=== PATIENT | female | born 1995 | race Two or more races ===

== ENCOUNTER 2018-06-28 19:05 | Inpatient (IN) | payer BC ==
[2018-06-28 20:38] VITALS: BMI 31.4
[2018-06-28] MEDS ORDERED: Lactated Ringer's 1,000 ML IV ONE ×2 (20:41→21:15)
[2018-06-28 22:17] LABS: BASO % 0.2 % (0.0-2.0); EOS # 0.1 K/uL (0.0-0.7); EOS % 0.6 % (0.0-4.0); HEMOGLOBIN 10.9 g/dL (11.0-16.0); LYMPH # 2.6 K/uL (1.0-4.3); LYMPH % 20.4 % (20.0-40.0); MEAN CELL VOLUME 80.5 fL (81.0-99.0); MEAN CORPUSCULAR HEMOGLOBIN 27.4 pg (27.0-31.0); MEAN PLATELET VOLUME 8.8 fL (7.2-11.7); MONO # 0.9 K/uL (0.0-0.8); MONO % 7.1 % (0.0-10.0); NEUT # 9.1 K/uL (1.8-7.0); NEUT % 71.7 % (50.0-75.0); NRBC % 0.1 % (0.0-2.0); RED CELL DISTRIBUTION WIDTH 14.9 % (11.5-14.5); WHITE BLOOD COUNT 12.7 K/uL (4.8-10.8)
[2018-06-28 22:28] LABS: SQUAMOUS EPITHIAL < 1 /hpf (0-5); URINE BACTERIA RARE (<OCC); URINE BILIRUBIN NEGATIVE (NEGATIVE); URINE BLOOD 1+ (NEGATIVE); URINE CLARITY Hazy (Clear); URINE COLOR Yellow (YELLOW); URINE GLUCOSE (UA) NORMAL (Normal); URINE LEUKOCYTE ESTERASE 3+ Leu/uL (Negative); URINE PROTEIN NEGATIVE (NEGATIVE); URINE UROBILINOGEN NORMAL mg/dL (0.2-1.0)
[2018-06-29] MEDS ORDERED: Bupivacaine HCl/FentaNYL Cit 100 ML EPI ONE (01:28)
[2018-06-29] MEDS ORDERED: Lidocaine 2% MPF (5 ml) Inj ONE ×2 (07:20→09:00)
[2018-06-29] MEDS ORDERED: Oxycodone/Acetaminophen 5/325 mg Tab PO PRN (09:30)
[2018-06-29] MEDS ORDERED: Oxytocin 30 UNIT 30 UNITS/500 ML BAG IV ONE (09:30)
[2018-06-29] MEDS: Benzocaine/Menthol 20%-0.5% Topical Spray (60 ml) TOP PRN ×2 (11:36→17:46)
[2018-06-29 21:05] LABS: BASO % 0.2 % (0.0-2.0); EOS % 0.1 % (0.0-4.0); HEMOGLOBIN 9.7 g/dL (11.0-16.0); LYMPH % 6.6 % (20.0-40.0); MEAN CELL VOLUME 81.7 fL (81.0-99.0); MEAN CORPUSCULAR HEMOGLOBIN 28.2 pg (27.0-31.0); MEAN CORPUSCULAR HGB CONC 34.5 g/dL (33.0-37.0); MEAN PLATELET VOLUME 8.1 fL (7.2-11.7); MONO # 0.9 K/uL (0.0-0.8); MONO % 5.9 % (0.0-10.0); NEUT # 13.1 K/uL (1.8-7.0); NEUT % 87.2 % (50.0-75.0); PLATELET COUNT 217 K/uL (130-400); RBC 3.46 Mil/uL (3.80-5.20); RED CELL DISTRIBUTION WIDTH 14.7 % (11.5-14.5)
[2018-06-29 22:11] LABS: BANDS 1 % (0-2); EOSINOPHIL 1 % (0-4); LYMPHOCYTE 4 % (20-40); MONOCYTE 7 % (0-10); NEUTROPHIL 87 % (50-75); TOTAL CELLS COUNTED 100
[2018-06-29 22:12] LABS: PLATELET CLUMPS PRESENT; PLATELET ESTIMATE NORMAL (NORMAL)
[2018-06-30] MEDS ORDERED: Piperacillin/Tazobact 3.375 GM in Sodium Chloride 100 ML IVPB SCH (12:30)
[2018-06-30] MEDS ORDERED: Lactated Ringer's 1,000 ML IV ONE ×2 (13:50→17:20)
[2018-06-30] MEDS: Prenatal Multivit/Folic Acid/Iron Tab PO SCH (14:04)
[2018-06-30] MEDS: cefTRIAXone 2 GM in Sodium Chloride 0.9% 100 ML IVPB SCH (14:11)
--- NOTE | 2018-06-30 14:45 | RAD ---
Date of service: 06/30/2018 HISTORY: febrile COMPARISON: No prior. TECHNIQUE: Chest PA and lateral FINDINGS: LUNGS: No active pulmonary disease. PLEURA: No significant pleural effusion identified. No pneumothorax apparent. CARDIOVASCULAR: Normal. OSSEOUS STRUCTURES: No significant abnormalities. VISUALIZED UPPER ABDOMEN: Normal. OTHER FINDINGS: None. IMPRESSION: No active disease.
[2018-06-30 14:47] LABS: BASO % 0.3 % (0.0-2.0); EOS % 0.1 % (0.0-4.0); HEMOGLOBIN 8.5 g/dL (11.0-16.0); LYMPH % 6.9 % (20.0-40.0); MEAN CELL VOLUME 81.8 fL (81.0-99.0); MEAN CORPUSCULAR HGB CONC 34.3 g/dL (33.0-37.0); MEAN PLATELET VOLUME 8.4 fL (7.2-11.7); MONO # 1.1 K/uL (0.0-0.8); MONO % 7.6 % (0.0-10.0); NEUT # 12.8 K/uL (1.8-7.0); NEUT % 85.1 % (50.0-75.0); PLATELET COUNT 209 K/uL (130-400); RBC 3.03 Mil/uL (3.80-5.20); RED CELL DISTRIBUTION WIDTH 14.9 % (11.5-14.5); WHITE BLOOD COUNT 15.1 K/uL (4.8-10.8)
[2018-06-30] MEDS: Lactated Ringer's 1,000 ML IV SCH (14:55)
[2018-06-30 15:14] LABS: ALBUMIN 3.2 g/dL (3.5-5.0); ALT/SGPT 19 U/L (9-52); AST/SGOT 35 U/L (14-36); BLOOD UREA NITROGEN 9 mg/dL (7-17); CALCIUM 8.9 mg/dl (8.6-10.4); GFR NON-AFRICAN AMERICAN > 60
[2018-06-30 15:37] LABS: LYMPHOCYTE 7 % (20-40); MONOCYTE 7 % (0-10); NEUTROPHIL 86 % (50-75); PLATELET ESTIMATE NORMAL (NORMAL); TOTAL CELLS COUNTED 100
[2018-06-30 15:38] LABS: ANISOCYTOSIS SLIGHT; HYPOCHROMIC SLIGHT; POIKILOCYTOSIS SLIGHT; TARGET CELLS SLIGHT
[2018-06-30 15:39] LABS: LARGE PLATELETS PRESENT; OVALOCYTES SLIGHT
[2018-07-01] MEDS: cefTRIAXone 2 GM in Sodium Chloride 0.9% 100 ML IVPB SCH ×2 (01:07→13:25)
[2018-07-01 07:39] LABS: BASO % 0.3 % (0.0-2.0); EOS # 0.1 K/uL (0.0-0.7); EOS % 0.3 % (0.0-4.0); HEMOGLOBIN 9.1 g/dL (11.0-16.0); LYMPH % 11.4 % (20.0-40.0); MEAN CELL VOLUME 83.4 fL (81.0-99.0); MEAN CORPUSCULAR HGB CONC 33.5 g/dL (33.0-37.0); MEAN PLATELET VOLUME 8.5 fL (7.2-11.7); MONO # 1.4 K/uL (0.0-0.8); NEUT # 14.2 K/uL (1.8-7.0); RBC 3.26 Mil/uL (3.80-5.20); RED CELL DISTRIBUTION WIDTH 15.1 % (11.5-14.5); WHITE BLOOD COUNT 17.8 K/uL (4.8-10.8)
[2018-07-01 07:52] LABS: ALBUMIN 2.9 g/dL (3.5-5.0); ALT/SGPT 21 U/L (9-52); AST/SGOT 17 U/L (14-36); BLOOD UREA NITROGEN 6 mg/dL (7-17); CALCIUM 8.6 mg/dl (8.6-10.4); GFR NON-AFRICAN AMERICAN > 60
[2018-07-01] MEDS: Prenatal Multivit/Folic Acid/Iron Tab PO SCH (09:39)
[2018-07-01] MEDS: Lactated Ringer's 1,000 ML IV SCH (09:41)
[2018-07-01] MEDS ORDERED: Lactated Ringer's 1,000 ML IV ONE (11:31)
--- NOTE | 2018-07-01 11:42 | OBPPN ---
Datetime: 07/01/2018 11:32 PP Pain Prov: Within normal limits PP Nausea Prov: Denies PP Flatus Prov: Yes PP Breasts Prov: Normal PP Heart Prov: Normal PP Lungs Prov: Normal PP Abdomen/Uterus Prov: Normal PP Lochia Prov: Normal PP Vulva/Perineum Prov: Normal PP CVA Tenderness Prov: Normal PP Extremities Prov: Normal PP Impression Prov: Normal progression PP Impression Other Prov: maternal fever complicated resistant e. coli UTI PP Progress Note Prov: blood cx daily until negative ceftriaxone seems to have better clinical response improving, no longer worrisome for progressing sepsis
[2018-07-02] MEDS: cefTRIAXone 2 GM in Sodium Chloride 0.9% 100 ML IVPB SCH ×2 (02:10→14:10)
[2018-07-02 08:38] LABS: BASO % 0.2 % (0.0-2.0); EOS # 0.2 K/uL (0.0-0.7); EOS % 1.1 % (0.0-4.0); HEMOGLOBIN 8.3 g/dL (11.0-16.0); LYMPH # 2.2 K/uL (1.0-4.3); LYMPH % 15.8 % (20.0-40.0); MEAN CELL VOLUME 82.4 fL (81.0-99.0); MEAN PLATELET VOLUME 8.1 fL (7.2-11.7); MONO # 0.8 K/uL (0.0-0.8); MONO % 5.7 % (0.0-10.0); NEUT # 10.9 K/uL (1.8-7.0); NEUT % 77.2 % (50.0-75.0); RBC 2.95 Mil/uL (3.80-5.20); RED CELL DISTRIBUTION WIDTH 15.2 % (11.5-14.5); WHITE BLOOD COUNT 14.1 K/uL (4.8-10.8)
[2018-07-02 08:51] LABS: ALB/GLOB RATIO 0.9 (1.0-2.1); ALT/SGPT 14 U/L (9-52); AST/SGOT 15 U/L (14-36); BLOOD UREA NITROGEN 7 mg/dL (7-17); CALCIUM 8.5 mg/dl (8.6-10.4); GFR NON-AFRICAN AMERICAN > 60
[2018-07-02] MEDS: Prenatal Multivit/Folic Acid/Iron Tab PO SCH (09:23)
--- NOTE | 2018-07-02 13:00 | US ---
Date of service: 07/02/2018 PROCEDURE: Ultrasound of the Kidneys HISTORY: recucrrent fever, complicated uti, r/o abscess and COMPARISON: None available. TECHNIQUE: Sonogram of the kidneys. FINDINGS: RIGHT KIDNEY: Measures: 15.3 x 6.1 x 7.0 cm. Normal in size, contour and echogenicity. . Right-sided hydronephrosis. There is a small nonobstructing calculus lower pole collecting system right kidney measuring 1.6 x 1.0 x 1.8 cm No solid mass lesion or hydronephrosis visualized. LEFT KIDNEY: Measures: 14.3 x 5.7 x 6.3 cm. Normal in size, contour and echogenicity. Upper upper/ midpole cyst measuring approximately 4.8 x 4.4 x 5.8 cm No stone, solid mass lesion or hydronephrosis visualized. OTHER FINDINGS: Both ureteral jets visible. Prevoid volume calculated at approximately 741 CC and postvoid volume at 78 cc IMPRESSION: Right-sided hydronephrosis with 1.6 x 1.0 x 1.8 cm calculus lower pole collecting system. Relatively large cyst upper/ midpole left kidney. Moderately large postvoid residual.
--- NOTE | 2018-07-02 17:07 | OBPPN ---
Datetime: 07/02/2018 14:40 PP Pain Prov: Within normal limits PP Nausea Prov: Denies PP Flatus Prov: Yes PP BM Prov: Yes PP Breasts Prov: Not Done PP Heart Prov: Normal PP Lungs Prov: Normal PP Abdomen/Uterus Prov: Normal PP Lochia Prov: Normal PP Vulva/Perineum Prov: Normal PP CVA Tenderness Prov: Normal PP Extremities Prov: Normal PP C/S Incision Prov: Normal PP Progress Prov: Normal PP Impression Prov: Increased temperature PP Plan Prov: Antibiotic therapy PP Progress Note Prov: PPD # 3 S/P Vaginal Delivery Hx of recurrent UTI's throughout , per Dr. Rey who asked me to see this patient + E.Coli in urine on admission and + E.Coli on Blood Gram Stain on admission No Growth on blood culture from 06/30 and 07/01. Repeated Blood Culture done today and pending Presently on Rocephin 2 grams IV q 12 hours and will continue Todays WBC 14.1 and decreasing, H_H today 8.3/24.3 Last temp 100.6 last PM and afebrile today. 98.8 at 13:30 Denies any pains or complaints and anxious to go home Baby also on Antibiotics well Bladder and Renal US ordered today and awaiting results Datetime: 07/01/2018 11:32 Vital Signs Provider PP: Reviewed (Annotations: Data stored by CPN on behalf of user)
[2018-07-03] MEDS: cefTRIAXone 2 GM in Sodium Chloride 0.9% 100 ML IVPB SCH ×2 (02:20→14:07)
[2018-07-03 08:41] LABS: BASO % 0.3 % (0.0-2.0); EOS # 0.3 K/uL (0.0-0.7); EOS % 2.3 % (0.0-4.0); HEMOGLOBIN 8.5 g/dL (11.0-16.0); LYMPH # 2.7 K/uL (1.0-4.3); LYMPH % 22.5 % (20.0-40.0); MEAN CELL VOLUME 82.4 fL (81.0-99.0); MEAN PLATELET VOLUME 8.3 fL (7.2-11.7); MONO # 0.8 K/uL (0.0-0.8); MONO % 6.8 % (0.0-10.0); NEUT # 8.1 K/uL (1.8-7.0); NEUT % 68.1 % (50.0-75.0); RBC 3.02 Mil/uL (3.80-5.20); WHITE BLOOD COUNT 11.8 K/uL (4.8-10.8)
[2018-07-03 09:02] LABS: ALBUMIN 3.1 g/dL (3.5-5.0); ALT/SGPT 25 U/L (9-52); AST/SGOT 20 U/L (14-36); BLOOD UREA NITROGEN 11 mg/dL (7-17); CALCIUM 8.8 mg/dl (8.6-10.4); GFR NON-AFRICAN AMERICAN > 60
[2018-07-03] MEDS: Prenatal Multivit/Folic Acid/Iron Tab PO SCH (09:50)
--- NOTE | 2018-07-03 14:54 | OBPPN ---
Datetime: 07/03/2018 14:50 PP Pain Prov: Within normal limits PP Nausea Prov: Denies PP Flatus Prov: Yes PP Breasts Prov: Normal PP Heart Prov: Normal PP Lungs Prov: Normal PP Abdomen/Uterus Prov: Normal PP Lochia Prov: Normal PP Vulva/Perineum Prov: Normal PP CVA Tenderness Prov: Normal PP Extremities Prov: Normal PP Impression Prov: Normal progression PP Plan Prov: Continue present management; Antibiotic therapy PP Impression Other Prov: except complicated UTI PP Progress Note Prov: PPD#4 one more day given resistant complicated UTI bacteremia and borderline temp, leukocytosis improvin g, likely home tm if continued improvement d/c reviewed left leg unequal edema no acute dvt signs, venous doppler tm before discharge Vital Signs Provider PP: Reviewed Vital Signs Provider Details PP: borderline temp at midnight 24h from last fever
[2018-07-04] MEDS: cefTRIAXone 2 GM in Sodium Chloride 0.9% 100 ML IVPB SCH (01:55)
[2018-07-04 07:45] LABS: BASO # 0.1 K/uL (0.0-0.2); LYMPH # 3.9 K/uL (1.0-4.3); MEAN CORPUSCULAR HEMOGLOBIN 27.6 pg (27.0-31.0); NEUT # 6.9 K/uL (1.8-7.0)
[2018-07-04 08:00] LABS: BASO % 0.8 % (0.0-2.0); EOS # 0.4 K/uL (0.0-0.7); EOS % 3.4 % (0.0-4.0); HEMOGLOBIN 9.5 g/dL (11.0-16.0); LYMPH % 32.2 % (20.0-40.0); MEAN CELL VOLUME 81.1 fL (81.0-99.0); MEAN PLATELET VOLUME 8.4 fL (7.2-11.7); MONO # 0.7 K/uL (0.0-0.8); NEUT % 57.6 % (50.0-75.0); NRBC % 0.3 % (0.0-2.0); RBC 3.43 Mil/uL (3.80-5.20); RED CELL DISTRIBUTION WIDTH 14.9 % (11.5-14.5)
[2018-07-04 08:41] VITALS: RESP 18
[2018-07-04 08:51] LABS: ALB/GLOB RATIO 1.1 (1.0-2.1); ALBUMIN 3.6 g/dL (3.5-5.0); ALT/SGPT 23 U/L (9-52); AST/SGOT 24 U/L (14-36); BLOOD UREA NITROGEN 10 mg/dL (7-17); GFR NON-AFRICAN AMERICAN > 60
[2018-07-04] MEDS: Prenatal Multivit/Folic Acid/Iron Tab PO SCH (10:58)
[2018-07-04 17:46] VITALS: PULSE 65; TEMP 97.5
[2018-07-05 01:18] VITALS: BP 105/70; O2SAT 99
--- NOTE | 2018-07-05 08:43 | OBHP ---
Datetime: 06/28/2018 21:36 IP Adm Impression: Term, intrauterine ; No Active Labor IP Admit Plan: Admit to unit; Initiate labor induction protocol Admit Comment, IP Provider: 23 @ 39W 04/06 PRESENTS TODAY FOR INDUCTION OF LABOR FOR POST TERM. POBHX: NONE PGYNHX: NONE PSHX: NONE SOCIAL: NEGATIVE MEDS: NONE PMHX; NONE PFHX: NONE A/P @ 39 WEEKS FOR IOL. 1) ADMIT TO DR MG. 2) CERVIDIL INSERTED AT 9:22PM. 3) CONTINUE CURRENTL MANAGEMENT. Pelvic Type - PN: Adequate Extremities - PN: Normal Abdomen - PN: Normal Back - PN: Normal Breast - PN: Normal Lungs - PN: Normal Heart - PN: Normal Thyroid - PN: Normal Neurologic - PN: Normal HEENT - PN: Normal General - PN: Normal Presentation-Admit: Vertex FHR - Baseline A Provider: 140 Membranes, Provider: Intact Contraction Comments Provider: NONE Gestation - Est Wks by US: 39.0 EGA AdmitDate IP: 39.6 Vital Signs Provider: Reviewed IP Chief Complaint: Scheduled induction of labor NICHD Variability Prov Fetus A: REACTIVE NICHD Accel Fetus A IP Provider: 15X15 FHR Category Provider Fetus A: Category I NICHD Decel Fetus A IP Provider: None Dilatation, Provider: 0 Effacement, Provider: 0 Station, Provider: -3 Genitourinary Exam: Normal DTRs - PN: Normal
--- NOTE | 2018-07-05 08:43 | OBDS ---
DELIVERY PERSONNEL Nurse Director Of Therapy Services Certified: N/A Delivery Doctor: Gladys Carvajal MD Scrub Nurse: N/A Car Starter: Kenzie Medina RN Anesthesiologist: Dr. Moscoso Education Associate: N/A Resident: N/A MATERNAL INFORMATION Delivery Anesthesia: Epidural Medications in Delivery: 2% Lidocaine (100mg/5ml) 10ml given by Dr. Carvajal Estimated Blood Loss (ml): 500 Placenta Cultured: No Maternal Complications: None Provider Comments: Left mediolateral episiotomy was performed to expedite delivery due to category I I tracing. was delivered in LEXI position with ease. Annealing Furnace Operator present at delivery. Uterine atony was noted and resolved after bimanual massage, oxytocin and methergine was given. Episiotomy wa s repaired in the usual fashion. Excellent hemostasis was noted. Patient tolerated procedure well. 19 of 20 laps were counted. Patient was examined and it was confirmed lap was not in patient. LABOR SUMMARY EDC: 06/29/2018 00:00 No. Babies in Womb: 1 Attempted: No Labor Anesthesia: Epidural LABOR INFORMATION Onset of Labor: 06/29/2018 01:30 Complete Dilatation: 06/29/2018 08:05 Cervical Ripening Agents: Cervidil (Annotations: Cervidil pulled out.) Other Ripening Agents: N/A Oxytocin: N/A Group B Beta Strep: Negative Antibiotics # of Doses: N/A Antibiotics Time of Last Dose: N/A Steroids Given: None Reason Steroids Not Administered: Not Applicable Other Reason Not Administered: N/A MEMBRANES Membranes Rupture Method: Spontaneous Rupture of Membranes: 06/29/2018 08:05 Length of Rupture (hrs): 0.62 Amniotic Fluid Color: Clear Amniotic Fluid Amount: Moderate Amniotic Fluid Odor: Normal STAGES OF LABOR Stage 1 hrs: 6 Stage 1 min: 35 Stage 2 hrs: 0 Stage 2 min: 37 Stage 3 hrs: 0 Stage 3 min: 3 Total Time in Labor hrs: 7 Total Time in Labor min: 15 VAGINAL DELIVERY Episiotomy: Left Mediolateral Laceration Extension: N/A Laceration Type: None Laceration Repair: Yes CSECTION DELIVERY Uterine Closure: Double-layer closure BABY A INFORMATION Delivery Date/Time: 06/29/2018 08:42 Method of Delivery: Vaginal Born in Route : No : N/A Forceps: N/A Vacuum Extraction: N/A Shoulder Dystocia : No SHOULDER DYSTOCIA BABY A Delivery Date/Time: 06/29/2018 08:42 PRESENTATION/POSITION BABY A Presentation: Cephalic Cephalic Presentation: Vertex Vertex Position: Right Occipital Anterior Breech Presentation: N/A PLACENTA INFORMATION BABY A Placenta Delivery Time : 06/29/2018 08:45 Placenta Method of Delivery: Spontaneous Placenta Status: Delivered INFORMATION BABY A Gestational Age at Delivery: 40.0 Gestational Status: Term Infant Outcome : Liveborn Condition : Stable Infant Sex: Female IDENTIFICATION/MEDS BABY A ID Band Number: [id number] ID Band Location: Left Leg; Left Arm Sensor Applied: Yes Sensor Number: [id number] Sensor Location : Cord Clamp WEIGHT/LENGTH BABY A Infant Birthweight (gms): 3585 Infant Weight (lb): 7 Infant Weight (oz): 14 Length Inches: 21.00 Length cms: 53.3 CORD INFORMATION BABY A No. Cord Vessels: 3 Nuchal Cord : N/A Nuchal Cord Other: N/A True Knot: N/A Infant Cord pH Baby Arterial: N/A Cord pH Baby Venous: N/A Cord Blood Taken: Yes Banking/Donate Info: N/A Infant Suction: Mouth; Nose
--- NOTE | 2018-07-05 13:02 | VASCLAB ---
Date of service: 07/04/2018 PROCEDURE: Left Lower Extremity Venous Duplex Exam. HISTORY: swelling left lower leg S/P vaginal delivery PRIORS: None. TECHNIQUE: Left common femoral, femoral, popliteal and posterior tibial, peroneal and great saphenous veins were evaluated. Flow was assessed with color Doppler, compressibility, assessment of phasic flow and augmentation response. Report prepared by John Sommer, TRISTAN, RVT FINDINGS: LEFT: 1. Common Femoral Vein: 1.1. Compressibility - Fully compressible: Thrombus - None : Flow - Phasic: Augmentation -Normal: Reflux - None. 2. Femoral Vein: 2.1. Compressibility - Fully compressible: Thrombus - None: Flow - Phasic: Augmentation -Normal: Reflux - None. 3. Popliteal Vein: 3.1. Compressibility - Fully compressible: Thrombus - None: Flow - Phasic: Augmentation -Normal: Reflux - None. 4. Posterior Tibial Vein: 4.1. Compressibility - Fully compressible: Thrombus - None: Flow - Phasic: Augmentation -Normal: Reflux - None. 5. Peroneal Vein: 5.1. Compressibility - Fully compressible: Thrombus - None: Flow - Phasic: Augmentation -Normal: Reflux - None. 6. Great Saphenous Vein: 6.1. Compressibility - Fully compressible: Thrombus - None: Flow - Phasic: Augmentation - Normal: Reflux - None. OTHER FINDINGS: IMPRESSION: No evidence of deep or superficial vein thrombosis of the left lower extremity with excellent venous flow. Normal valve function noted of the left side. Normal venous flow noted in the right common femoral vein.
== END 2018-07-04 16:45 | disposition home or self-care (01) | DRG 774 ==
LOC: C.EROB 19:05 → C.4D 20:35 → UNDOADMIN 20:35 → C.4M 06-29 11:10 → C.4D 06-29 11:10
PROVIDERS: ADMIT Obstetrics & Gynecology; ATTEND Obstetrics & Gynecology
PROC: 10E0XZZ Delivery of Products of Conception, External Approach (ICD-10-PCS; principal; 2018-06-29)
PROC: 3E0P7VZ Introduction of Hormone into Female Reproductive, Via Natural or Artificial Opening (ICD-10-PCS; 2018-06-29)
PROC: 0W8NXZZ Division of Female Perineum, External Approach (ICD-10-PCS; 2018-06-29)
DX: O48.0 Post-term pregnancy (principal); O75.3 Other infection during labor; N39.0 Urinary tract infection, site not specified; R78.81 Bacteremia; B96.20 Unspecified Escherichia coli [E. coli] as the cause of diseases classified elsewhere; Z3A.40 40 weeks gestation of pregnancy; Z37.0 Single live birth; O75.89 Other specified complications of labor and delivery; O12.04 Gestational edema, complicating childbirth; O62.2 Other uterine inertia